=== PATIENT | female | born 1955 | race Caucasian/White ===

== ENCOUNTER 2019-05-15 05:52 | Day surgery (SDC) | payer MEDICARE ==
[~2019-05-15] VITALS: Ht 168.9 cm; Wt 70.3 kg
[~2019-05-15 05:52] MED LIST: CLOB30CR5 TP; ESTR10TA9 VG; FOLI0.4T2 PO; MELA1TAB28 PO; MV-M1TAB20 PO; PRAS1TAB4 PO; THYR32.4 PO; UBID50TA3 PO; ZINC30TA2 PO
[2019-05-15] MEDS ORDERED: SODIUM CHLORIDE 0.9% 1000ML 1,000 ML IV ONE (06:10)
[2019-05-15 06:57] VITALS: BP 119/71
[2019-05-15] MEDS ORDERED: PROPOFOL 10 MG/ML 20ML VIAL IV ONE (07:31)
[2019-05-15 07:53] VITALS: BP 101/52
[2019-05-15 07:58] VITALS: BP 99/56
[2019-05-15 08:03] VITALS: BP 100/55
[2019-05-15 08:08] VITALS: BP 123/74
[2019-05-15 08:13] VITALS: BP 118/68
== END 2019-05-15 08:50 | disposition home or self-care (01) ==
LOC: ENDO 05:52 → DAH 05:52 → ENDO 08:50
PROVIDERS: ATTEND Internal Medicine
DX: K57.32 Diverticulitis of large intestine without perforation or abscess without bleeding (principal); K64.0 First degree hemorrhoids; K57.30 Diverticulosis of large intestine without perforation or abscess without bleeding; K21.9 Gastro-esophageal reflux disease without esophagitis; M81.0 Age-related osteoporosis without current pathological fracture; Z88.2 Allergy status to sulfonamides; Z88.1 Allergy status to other antibiotic agents; Z91.041 Radiographic dye allergy status; Z79.899 Other long term (current) drug therapy; Z72.89 Other problems related to lifestyle; Z87.891 Personal history of nicotine dependence
CPT/HCPCS: 45378; A4215; A4221; A4222; A4223; A4606; A4615; A4663; J2704; J7030

== ENCOUNTER → 2020-12-16 | Outpatient (CLI) | payer MEDICARE ==
[~2020-12-16] MED LIST changes: -FOLI0.4T2 PO; +FOLI0.4T6 PO
== END | disposition home or self-care (01) ==
LOC: RAH 13:09
PROVIDERS: ATTEND Physical Medicine & Rehabilitation
DX: G31.89 Other specified degenerative diseases of nervous system (principal); I63.9 Cerebral infarction, unspecified
CPT/HCPCS: 70551